=== PATIENT | male | born 1955 | race Caucasian/White ===

== ENCOUNTER 2018-10-19 19:07 | Emergency (ER) | payer OTHER ==
[2018-10-19] MEDS ORDERED: Naproxen 500 MG TAB ONE (19:29)
[2018-10-19] MEDS ORDERED: methylPREDNISolone Acetate 40 mg/ml Vial ONE (19:29)
[2018-10-19] MEDS ORDERED: Ondansetron ODT 4 MG TAB ONE (19:29)
[2018-10-19] MEDS ORDERED: Acetaminophen 500 MG TAB ONE (19:41)
== END 2018-10-19 19:57 | disposition home or self-care (01) ==
LOC: NAV ERS 19:07
DX: T78.40XA Allergy, unspecified, initial encounter (principal); R11.2 Nausea with vomiting, unspecified
CPT/HCPCS: 96372; 99283; J1030; Q0162